=== PATIENT | male | born 1945 | race Caucasian/White ===

== ENCOUNTER 2018-09-11 10:30 | Day surgery (SDC) | payer MEDICARE ==
[~2018-09-11] VITALS: Ht 177.8 cm; Wt 90.7 kg
[2018-09-11] MEDS ORDERED: IBUP-2029 PO (11:58)
[2018-09-11] MEDS ORDERED: METO25TA6 PO (11:58)
[2018-09-11] MEDS ORDERED: GEMF600T4 PO (11:58)
[2018-09-11] MEDS ORDERED: ALEN70TA3 PO (11:58)
[2018-09-11] MEDS ORDERED: ASPI-1159 PO (11:58)
[2018-09-11] MEDS ORDERED: LEVO100T9 PO (11:58)
[2018-09-11] MEDS ORDERED: TAMS-11 PO (11:58)
[2018-09-11] MEDS ORDERED: FLUT1DIS3 IH (11:58)
[2018-09-11] MEDS ORDERED: LORA10CA PO (11:58)
[2018-09-11] MEDS ORDERED: LISI-186 PO (11:58)
[2018-09-11] MEDS ORDERED: MONT10TA21 PO (11:58)
[2018-09-11] MEDS ORDERED: NICARDIPINE 100MCG/ML 10ML VIAL (CATH LAB) IV ONE (15:44)
[2018-09-11] MEDS ORDERED: NITROGLYCERIN 50MCG/ML 10ML VIAL (CATH LAB) IV ONE (15:44)
[2018-09-11] MEDS ORDERED: HEPARIN SODIUM 1,000 UNIT/1ML VIAL IV ONE (15:44)
== END 2018-09-11 17:30 | disposition home or self-care (01) ==
LOC: CCL 10:30
PROVIDERS: ATTEND Specialist
DX: I25.110 Atherosclerotic heart disease of native coronary artery with unstable angina pectoris (principal); E78.5 Hyperlipidemia, unspecified; I10 Essential (primary) hypertension; E03.9 Hypothyroidism, unspecified
CPT/HCPCS: 93005; 93458; 99152; 99153; C1769; C1893; J1644; J3490; J7040; G0500